=== PATIENT | female | born 2000 | race Caucasian/White ===

== ENCOUNTER 2020-05-31 07:11 | Emergency (ER) | payer OTHER, SELFPAY ==
[2020-05-31 07:31] VITALS: BP 118/80; PULSE 115; RESP 16; TEMP 39.4; O2SAT 98; BMI 24.5
--- NOTE | 2020-05-31 07:56 | ED_ITS ---
HPI - General Adult General Chief complaint: General Medical Stated complaint: sore throat Time Seen by Provider: 05/31/20 07:37 Source: patient Mode of arrival: ambulatory History of Present Illness HPI narrative: 20-year-old female with no significant past medical history complaining of sore throat, difficulty / painful swallowing, and fever x4 days. Admits pain radiates to right ear/ head. States she is unable to swallow. Admits to tonsillar infection last year with similar symptoms. took Tylenol/ Motrin without relief at home. denies cough, CP / SOB, recent travel, sick contacts Onset (ago): day(s) Severity: severe Pain Consistency: constant Exacerbating factors: eating Related Data Allergies Allergy/AdvReac Type Severity Reaction Status Date / Time No Known Allergies Allergy Verified 05/31/20 07:39 Review of Systems Review of Systems: Yes all other systems are reviewed and are negative Constitutional: Constitutional: Reports chills, Reports fever(s) and Reports headache(s) ENT: Reports as per HPI, Reports otalgia, Reports facial pain, Reports headache(s), Reports sore throat, Reports throat swelling and Denies tongue swelling Cardiovascular: Cardiovascular: Denies chest pain Respiratory: Respiratory: Denies cough Gastrointestinal: Gastrointestinal: Denies diarrhea and Denies vomiting Neurologic: Reports headache(s) Allergic/Immunologic: Allergic/Immunologic: Reports throat swelling and Denies tongue swelling PMFSH Past Medical History Attestation statement: The following information was validated with the patient. Medical History (Updated 05/31/20 @ 07:33 by Araceli Macias) No known health problems Social History Social History Alcohol intake: never Smoking Status: Never smoker Smoked in Last 30 Days: No Use of substances other than those prescribed or required for medical reasons: No Advance Directives: No Advance Directives Information Provided: Yes Physical Exam Vital Signs and I&O and Narrative: Vital Signs and I&O: Vital Signs Temp 99.1 F 05/31/20 11:19 Pulse 98 05/31/20 11:19 Resp 16 05/31/20 11:19 BP 110/59 L 05/31/20 11:19 Pulse Ox 98 05/31/20 11:19 Intake & Output 05/30/20 05/31/20 05/31/20 18:59 06:59 18:59 Intake Total 3050 / 3050 Balance 3050 / 3050 Weight 58.967 kg Intake: Intake, IV Amoun t 3050 / 3050 Clindamycin Ph osphate/D5W 600 50 / 50 mg In 50 ml @ 100 mls/hr IV ONCE ONE Rx#:[id number] 0.9 % Sodium C hloride 1,000 ml 3000 / 3000 @ 999 mls/hr I VCONT .Q1H1M RUY Rx#:[id number] Body Mass Index 24.5 Const: General: cooperative and healthy appearing O rientation/consciousness: patient oriented x3 HENMT: Head: Yes normal to inspection Ears: hearing grossly normal bilaterally and TM's normal bilaterally General nose exam: Normal external nose present Mouth: tongue normal, moist mucous membranes, no drooling and muffled voice (mild ) Throat: Yes uvula midline, Yes abnormal tonsil (R tonsil swollen, erythematous and with exudates) and No peritonsillar mass Neck: Other: cervical lymphadenopathy present greater on the right Resp: Effort & Inspection: normal respiratory effort, no respiratory distress, no stridor and not tachypneic Cardio: Jugular venous distension: no JVD Rhythm: regular rhythm GI: Inspection: Yes normal to inspection Palpation (GI): Soft to palpation and nontender Neuro: General: patient oriented x3 Course Reevaluation(s) Reevaluation #1: leukocytosis of 17.7. Patient's still febrile and ta chyacrdic, tolerated PO decadron and Tylenol in the ED. Low BP likely from dehydration/ decreased p.o. intake rather than severe sepsis. Low concern for severe sepsis. Will give additional IVF and re-evaluate, anticipated DC home Monospot screen negative Time: 09:20 Reevaluation #2: on re-evaluation she reports mild symptomatic improvement however residual throat pain. fever/vital signs improved, she is nontoxic appearing. Has tolerated p.o. in the ED. Discharged with worrisome signs and symptoms and very strict return precautions discussed. Patient verbalized understanding and feels safe to go home Time: 11:25 Medical Decision Making [facility] Narrative Medical decision making narrative: 20-year-old female with no significant past medical history complaining of sore throat, difficulty / painful swallowing, and fever x4 days. on exam a febrile, tachycardic likely from fever. exam consistent with strep pharyngitis/ possible tonsillar cellulitis . Low concern for [employer]. No drooling, uvula midline, no airway compromise. Low concern for severe sepsis at this time Plan: Labs, rapid strep, Monospot, IVF, p.o. Decadron, IV antibiotics Lab Data Result diagrams: 05/31/20 08:00 05/31/20 08:00 Labs: Lab Results 05/31/20 05/31/20 05/31/20 Range/Units 07:59 08:00 08:00 WBC 17.7 H (4.8-10.8) X10*3/uL RBC 4.47 (4.20-5.50) X10*6/uL Hgb 12.5 (12.0-16.0) g/dl Hct 38.4 (37-47) % MCV 85.9 (80-98) fL MCH 28.0 (27.0-33.0) pg MCHC 32.6 (31.0-35.0) g/dl RDW 12.9 (11.0-16.0) % Plt Count 225 (160-400) X10*3/uL MPV 9.8 (9.4-12.3) fL Immature Gran % (Auto) 1.0 H (0.0-0.4) % Neut % (Auto) 84.1 H (45-73) % Lymph % (Auto) 6.2 L (20-40) % [place] % (Auto) 8.6 (2-11) % Eos % (Auto) 0.0 (0-4) % Baso % (Auto) 0.1 (0-2) % Neut # (Auto) 14.9 H (2.0-8.3) X10*3/uL Lymph # (Auto) 1.1 L (1.2-4.9) X10*3/uL [place] # (Auto) 1.5 H (0.1-1.2) X10*3/uL Eos # (Auto) 0.0 (0.0-0.4) X10*3/uL Baso # (Auto) 0.0 (0.0-0.2) X10*3/uL Abs Immat Gran (auto) 0.18 H (0.00-0.03) X10*3/uL Absolute Nucleated RBC 0.000 (0.0-0.012) X10*3/uL Nucleated RBC % (auto) 0.0 (0.0-0.2) /100WBC Smear Tech's Comments VERIFIED Sodium (135-145) mmol/L Potassium (3.3-5.1) mmol/l Chloride (96-108) mmol/L Carbon Dioxide (22-29) mmol/L Anion Gap (12-20) BUN (9-16) mg/dL Creatinine (0.5-1.4) mg/dL Estim Creat Clear Calc Estimated GFR Random Glucose (60-115) mg/dL Lactic Acid 0.8 (0.5-2.0) mmol/L Calcium (8.4-10.2) mg/dL Total Bilirubin (0.0-1.0) mg/dL Direct Bilirubin (0.0-0.5) mg/dL AST (5-31) U/L ALT (0-31) U/L Alkaline Phosphatase (39-117) U/L Total Protein (6.5-8.0) g/dL Albumin (3.5-5.0) g/dL Monoscreen Negative (Negative) 05/31/20 Range/Units 08:00 WBC (4.8-10.8) X10*3/uL RBC (4.20-5.50) X10*6/uL Hgb (12.0-16.0) g/dl Hct (37-47) % MCV (80-98) fL MCH (27.0-33.0) pg MCHC (31.0-35.0) g/dl RDW (11.0-16.0) % Plt Count (160-400) X10*3/uL MPV (9.4-12.3) fL Immature Gran % (Auto) (0.0-0.4) % Neut % (Auto) (45-73) % Lymph % (Auto) (20-40) % [place] % (Auto) (2-11) % Eos % (Auto) (0-4) % Baso % (Auto) (0-2) % Neut # (Auto) (2.0-8.3) X10*3/uL Lymph # (Auto) (1.2-4.9) X10*3/uL [place] # (Auto) (0.1-1.2) X10*3/uL Eos # (Auto) (0.0-0.4) X10*3/uL Baso # (Auto) (0.0-0.2) X10*3/uL Abs Immat Gran (auto) (0.00-0.03) X10*3/uL Absolute Nucleated RBC (0.0-0.012) X10*3/uL Nucleated RBC % (auto) (0.0-0.2) /100WBC Smear Tech's Comments Sodium 137 (135-145) mmol/L Potassium 3.8 (3.3-5.1) mmol/l Chloride 103 (96-108) mmol/L Carbon Dioxide 26 (22-29) mmol/L Anion Gap 12 (12-20) BUN 8 L (9-16) mg/dL Creatinine 0.81 (0.5-1.4) mg/dL Estim Creat Clear Calc 91.4 Estimated GFR > 60 Random Glucose 112 (60-115) mg/dL Lactic Acid (0.5-2.0) mmol/L Calcium 8.9 (8.4-10.2) mg/dL Total Bilirubin 1.6 H (0.0-1.0) mg/dL Direct Bilirubin 0.7 H (0.0-0.5) mg/dL AST 18 (5-31) U/L ALT 8 (0-31) U/L Alkaline Phosphatase 77 (39-117) U/L Total Protein 7.7 (6.5-8.0) g/dL Albumin 4.5 (3.5-5.0) g/dL Monoscreen (Negative)
[2020-05-31] MEDS: Ketorolac Tromethamine 15 MG/ML VIAL IV (08:06)
[2020-05-31] MEDS: 0.9 % Sodium Chloride 1,000 ML 999 ML IVCONT ×3 (08:06→10:02)
[2020-05-31 08:27] LABS: Basophils Percent Auto 0.1 % (0-2); Hematocrit 38.4 % (37-47); Hemoglobin 12.5 g/dl (12.0-16.0); Imm Gran Abs Auto 0.18 X10*3/uL (0.00-0.03); Lymphocytes Absolute Auto 1.1 X10*3/uL (1.2-4.9); Lymphocytes Percent Auto 6.2 % (20-40); MANUAL DIFF FLAG SCAN; Mean Corpuscular HGB Conc 32.6 g/dl (31.0-35.0); Mean Corpuscular Volume 85.9 fL (80-98); Mean Platelet Volume 9.8 fL (9.4-12.3); Monocytes Absolute Auto 1.5 X10*3/uL (0.1-1.2); Monocytes Percent Auto 8.6 % (2-11); Neutrophils Absolute Auto 14.9 X10*3/uL (2.0-8.3); Neutrophils Percent Auto 84.1 % (45-73); Platelet Count 225 X10*3/uL (160-400); Red Blood Count 4.47 X10*6/uL (4.20-5.50); Red Cell Distribution Width 12.9 % (11.0-16.0); SCAN SMEAR FLAG 1; White Blood Count 17.7 X10*3/uL (4.8-10.8)
[2020-05-31] MEDS: Clindamycin Phosphate/D5W 600 MG/50 ML PIGGYBACK 100 MG IV (08:27)
[2020-05-31 08:29] LABS: Lactic Acid 0.8 mmol/L (0.5-2.0)
[2020-05-31 08:35] LABS: Alanine Aminotransferase 8 U/L (0-31); Albumin Level 4.5 g/dL (3.5-5.0); Alkaline Phosphatase 77 U/L (39-117); Anion Gap 12 (12-20); Aspartate Amino Transferase 18 U/L (5-31); Bilirubin Direct 0.7 mg/dL (0.0-0.5); Bilirubin Total 1.6 mg/dL (0.0-1.0); Blood Urea Nitrogen 8 mg/dL (9-16); Calcium 8.9 mg/dL (8.4-10.2); Carbon Dioxide 26 mmol/L (22-29); Chloride 103 mmol/L (96-108); Creatinine Clr Calc Pharmacy 91.4; Estimated Glomerular Filt Rate > 60; Glucose Random 112 mg/dL (60-115); Potassium 3.8 mmol/l (3.3-5.1); Sodium 137 mmol/L (135-145); Total Protein 7.7 g/dL (6.5-8.0)
[2020-05-31 08:51] LABS: SLIDE REVIEW VERIFIED
[2020-05-31 09:07] VITALS: BP 99/55; PULSE 110; TEMP 39.2; O2SAT 99
[2020-05-31 09:10] LABS: Monotest Negative (Negative)
--- NOTE | 2020-05-31 09:13 | PC.NURSE ---
PT TEMP DID NOT DECREASE WITH TORADOL/FLUIDS. PT STATED EARLIER SHE COULD NTO SWALLOW MOTRIN. OFFERED TYLENOL AT THIS TIME AND WILL CRUSH FOR PATIENT, SHE STATED THAT WOULD BE OK FOR HER TO TAKE THAT WAY. WILL ADMINISTER.
[2020-05-31] MEDS: Acetaminophen 325 MG TABLET 650 MG PO (09:18)
[2020-05-31] MEDS: dexAMETHasone 2 MG TABLET 10 MG PO (09:18)
[2020-05-31 10:03] VITALS: BP 110/63; PULSE 104; RESP 16; TEMP 38.6; O2SAT 99
[2020-05-31 10:53] VITALS: BP 109/64; PULSE 97; RESP 16; TEMP 37.9; O2SAT 98
[2020-05-31 11:19] VITALS: BP 110/59; PULSE 98; RESP 16; TEMP 37.3; O2SAT 98
== END 2020-05-31 12:12 | disposition home or self-care (01) ==
PROVIDERS: Physician Assistant; Emergency Provider Emergency Medicine
DX: J02.9 Acute pharyngitis, unspecified (principal); R50.9 Fever, unspecified; Z20.828 Contact with and (suspected) exposure to other viral communicable diseases
CPT/HCPCS: 36415; 80048; 80076; 83605; 85025; 86308; 87040; 87071; 96361; 96365; 96375; 99284; J1885

== ENCOUNTER 2022-08-24 12:08 | Emergency (ER) | payer OTHER, SELFPAY ==
--- NOTE | 2022-08-24 12:15 | ED_ITS ---
HPI - URI/Sore Throat General Chief Complaint: Upper Respiratory Symptoms <Patricia Cai CNP - Last Filed: 08/24/22 12:24> Stated Complaint: Flu Symptoms <Patricia Cai CNP - Last Filed: 08/24/22 12:24> Time Seen by Provider: 08/24/22 15:51 <Patricia Cai CNP - Last Filed: 08/24/22 12:24> Source: patient <Sally Carr NP - Last Filed: 08/24/22 16:31> Mode of arrival: ambulatory <Sally Carr NP - Last Filed: 08/24/22 16:31> Limitations: no limitations <Sally Carr NP - Last Filed: 08/24/22 16:31> History of Present Illness HPI Narrative: 22-year-old female no significant past medical history presents the emergency department with 4 day history of fever, cough, rhinorrhea, and muffled hearing in her ears. She had a telehealth visit with her primary care provider 3 days ago who recommended ibuprofen and decongestant for management of her symptoms. Her last fever was 2 days ago and managed with ibuprofen with good effect. She denies any history of asthma or breathing related issues. She denies any shortness of breath, chest pain, nausea, vomiting, changes in bowel patterns, headache, or vision changes. <Sally Carr NP - Last Filed: 08/24/22 16:31> MD elicited complaint: cough, rhinorrhea and nasal congestion <Sally Carr NP - Last Filed: 08/24/22 16:31> Onset (ago): day(s) (4) <Sally Carr NP - Last Filed: 08/24/22 16:31> Able to tolerate fluids by mouth: Yes <Sally Carr NP - Last Filed: 08/24/22 16:31> Exacerbating factors: nothing <Sally Carr NP - Last Filed: 08/24/22 16:31> Relieving factors: OTC cold medicine (moderate effect) <Sally Carr NP - Last Filed: 08/24/22 16:31> Treatments prior to arrival: none <Sally Carr NP - Last Filed: 08/24/22 16:31> Related Data Home Medications: Previous Rx's Medication Instructions Recorded acetaminophen 500 mg tablet 500 mg PO Q6H PRN fever or pain 05/31/20 (Tylenol Extra Strength) #20 tabs clindamycin HCl 300 mg capsule 300 mg PO Q6H 7 days #28 caps 05/31/20 ibuprofen 400 mg tablet 400 mg PO Q6H 7 days #28 tabs 05/31/20 <Patricia Cai CNP - Last Filed: 08/24/22 12:24> Allergies/Adverse Reactions: Allergies Allergy/AdvReac Type Severity Reaction Status Date / Time No Known Allergies Allergy Verified 05/31/20 07:39 <Patricia Cai CNP - Last Filed: 08/24/22 12:24> Review of Systems Review of Systems: In addition to documented HPI above, the additional ROS was obtained: Constitutional: No Weight loss, No Chills ENT/Mouth:No Sinus Pain, No Hoarseness, No sore throat, No Swallowing Difficulty Cardiovascular: No Chest Pain, No SOB Respiratory: No Sputum, No Wheezing Gastrointestinal: No Nausea, No Vomiting, No Diarrhea, No Constipation, No Abdominal pain Genitourinary: No Dysuria, No Urinary Frequency, No Hematuria, No Urinary Incontinence/retention, No Urgency, No Flank Pain Musculoskeletal: No joint pain, No Myalgias, No Joint Swelling Skin: No Skin Lesions, No rash Neuro: No Weakness, No Numbness, No Paresthesias <Sally Carr NP - Last Filed: 08/24/22 16:31> Yes all other systems are reviewed and are negative <Sally Carr NP - Last Filed: 08/24/22 16:31> [facility] Past Medical History Attestation statement: The following information was validated with the patient. <Sally Carr NP - Last Filed: 08/24/22 16:31> Source: old records reviewed <Sally Carr NP - Last Filed: 08/24/22 16:31> Medical History: Medical History No known health problems <Patricia Riyacampbell Cai CNP - Last Filed: 08/24/22 12:24> Social History Social History: Social History Alcohol intake: never Advance Directives: No Advance Directives Information Provided: No <Patricia Ritter KARLIE Cai - Last Filed: 08/24/22 12:24> Physical Exam Vital Signs: Vital Signs: Last Vital Signs Temp 98 F 08/24/22 12:20 Pulse 100 08/24/22 12:20 Resp 16 08/24/22 12:20 BP 138/78 08/24/22 12:20 Pulse Ox 99 08/24/22 12:20 O2 Del Method 08/24/22 12:20 BMI result Body Mass Index 30.2 <Patricia KhalilKARLIE rivera - Last Filed: 08/24/22 12:24> Vital Signs: Last Vital Signs Temp 98 F 08/24/22 12:20 Pulse 100 08/24/22 12:20 Resp 16 08/24/22 12:20 BP 138/78 08/24/22 12:20 Pulse Ox 99 08/24/22 12:20 O2 Del Method 08/24/22 12:20 BMI result Body Mass Index 30.2 <Sally Carr NP - Last Filed: 08/24/22 16:31> Const: General: cooperative, alert and awake <Sally Carr NP - Last Filed: 08/24/22 16:31> Nutritional Appearance: average body habitus <Sally Carr NP - Last Filed: 08/24/22 16:31> Orientation/consciousness: patient oriented x3 <Sally Carr NP - Last Filed: 08/24/22 16:31> Limitations: no limitations <Sally Carr NP - Last Filed: 08/24/22 16:31> HEENT: Head: Yes normal to inspection and Yes atraumatic <Sally Carr NP - Last Filed: 08/24/22 16:31> Ears: hearing grossly normal bilaterally, external ears normal and TM abnormal with fluid behind the TM bilateral <Sally Carr NP - Last Filed: 08/24/22 16:31> General nose exam: Normal external nose present and Normal nares present <Sally Carr RESIDENCE HALL DIRECTOR - Last Filed: 08/24/22 16:31> Face and sinus: Yes normal facial exam and Yes face symmetric <Sally Carr [employer]IDENCE HALL DIRECTOR - Last Filed: 08/24/22 16:31> Mouth: Normal oral and palatal mucosa present, tongue normal and no muffled voice <Sally Carr [employer]ID[employer] H[employer] DIRECTOR - Last Filed: 08/24/22 16:31> Teeth and gingiva: dentition normal <Sally Carr [employer]IDENCE HALL DIRECTOR - Last Filed: 08/24/22 16:31> Throat: Yes posterior oropharynx normal, Yes tonsils normal and Yes uvula midline <Sally Carr [employer]IDENCE HALL DIRECTOR - Last Filed: 08/24/22 16:31> Eyes: General: appearance normal, both eyes and all related structures <Sally Carr [employer]IDENCE HALL DIRECTOR - Last Filed: 08/24/22 16:31> Visual Bartlett: normal visual bartlett by confrontation <Sally Carr [employer]IDENCE HALL DIRECTOR - Last Filed: 08/24/22 16:31> Alignment and Position: alignment normal <Sally Carr [employer]IDENCE HALL DIRECTOR - Last Filed: 08/24/22 16:31> Periorbital: periorbital findings normal <Sally Carr [employer]IDENCE HALL DIRECTOR - Last Filed: 08/24/22 16:31> Eyelids: Yes eyelids normal <Sally Carr RESIDENCE HALL DIRECTOR - Last Filed: 08/24/22 16:31> Conjunctivae: conjunctivae normal <Sally Carr RESIDENCE HALL DIRECTOR - Last Filed: 08/24/22 16:31> Sclerae: sclerae normal <Sally Carr RESIDENCE HALL DIRECTOR - Last Filed: 08/24/22 16:31> Corneas: corneas normal <Sally Carr, RESIDENCE HALL DIRECTOR - Last Filed: 08/24/22 16:31> Pupils: Equal, round and reactive pupils present <Sally Carr [employer]IDENCE HALL DIRECTOR - Last Filed: 08/24/22 16:31> EOM: EOMs intact bilaterally <Sally Carr [employer]IDENCE HALL DIRECTOR - Last Filed: 08/24/22 16:31> Neck: Neck: Yes normal visual inspection, Yes full ROM and Yes no lymphadenopathy <Sally Carr, RESIDENCE HALL DIRECTOR - Last Filed: 08/24/22 16:31> Chest: Chest palpation & inspection: normal inspection of the chest <Sally Carr, RESIDENCE HALL DIRECTOR - Last Filed: 08/24/22 16:31> Resp: Effort & Inspection: normal respiratory effort, Actively coughing Quality: dry and not labored <Sally Carr, RESIDENCE HALL DIRECTOR - Last Filed: 08/24/22 16:31> Auscultation: clear to auscultation bilaterally, no crackles, no rhonchi and no wheezes <Sally Bruno, RES[employer]ENCE H[employer] DIRECTOR - Last Filed: 08/24/22 16:31> Cardio: Rate: regular rate <Sally Carr, RESIDENCE HALL DIRECTOR - Last Filed: 08/24/22 16:31> Rhythm: regular rhythm <Sally Carr, RESIDENCE HALL DIRECTOR - Last Filed: 08/24/22 16:31> Skin: General skin exam: no rashes or lesions noted <Sally Carr, RESIDENCE HALL DIRECTOR - Last Filed: 08/24/22 16:31> Neuro: General: patient oriented x3, tone normal and moves all extremities <Sally Carr, RESIDENCE HALL DIRECTOR - Last Filed: 08/24/22 16:31> Cranial nerves: Yes Equal, round and reactive pupils present <Sally Carr, RESIDENCE HALL DIRECTOR - Last Filed: 08/24/22 16:31> Cognition (Neuro): normal cognition <Sally Carr, RESIDENCE HALL DIRECTOR - Last Filed: 08/24/22 16:31> Gait exam (Neuro): Normal gait present <Sally Angelicakrishgabino, RESIDENCE HALL DIRECTOR - Last Filed: 08/24/22 16:31> Motor exam (neuro): 5/5 motor strength present throughout <Sallyzak Carr, RESIDENCE HALL DIRECTOR - Last Filed: 08/24/22 16:31> Extrem: General: Yes normal to inspection, Yes full ROM and Yes capillary refill normal <Sally Bruno, RES[employer]ENCE H[employer] DIRECTOR - Last Filed: 08/24/22 16:31> Course Course Course Narrative: This is an RME: Additional HPI, ROS, PE not included below will be deferred to primary provider. Patient is a 22-year-old female who presents to the emergency department with complaints of cough, runny nose, bilateral ear pain x 4 days. Denies known sick contacts. Has been taking ibuprofen and a decongestant prescribed by PCP after phone visit 3 days ago without any improvement. Denies fevers, chills. Will require a return to work note. Plan: viral testing. <Patricia Cai CNP - Last Filed: 08/24/22 12:24> This is an RME: Additional HPI, ROS, PE not included below will be deferred to primary provider. Patient is a 22-year-old female who presents to the emergency department with complaints of cough, runny nose, bilateral ear pain x 4 days. Denies known sick contacts. Has been taking ibuprofen and a decongestant prescribed by PCP after phone visit 3 days ago without any improvement. Denies fevers, chills. Will require a return to work note. Plan: viral testing. <Sally Carr NP - Last Filed: 08/24/22 16:31> Medical Decision Making Medical Decision Making MDM Narrative: 22-year-old female no significant past medical history presents the emergency department with 4 day history of fever, cough, rhinorrhea, and muffled hearing in her ears. Serology negative for influenza or covid. Physical exam consistent with fluid behind bilateral TMs without reddness or bulging. LS CTA. Pt alert, awake, and converstant with no acute distress noted and safe for discharge. Plan to continue Ibuprofen and decongestants to manage symptoms. Recommended to increase PO intake and rest. HPI, PE, diagnostics, and plan discussed with patient and family with no unanswered questions at this time. Patient educated to return to the emergency department with new, worsening, or concerning emergent symptoms. Recommended to follow-up with her primary care provider in addition to [facility] general surgery for further treatment and manag ement. *Refer to Course for additional information on consultations, diagnostic interpretation, consultations, emergency department stay, conversations with patient and family, shared decision making with patient, and more information on medical decision making* <Sally Carr NP - Last Filed: 08/24/22 16:31> Lab Data Labs: Lab Results 08/24/22 08/24/22 Range/Units 12:25 12:25 COVID-19 ([facility]) Negative (Negative) COVID-19 Clin Com See Note Influenza Type A ([place]) Negative (Negative) Influenza Type B ([place]) Negative (Negative) Influenza A & B Note See Note <Patricia Cai CNP - Last Filed: 08/24/22 12:24> Lab Results 08/24/22 08/24/22 Range/Units 12:25 12:25 COVID-19 ([facility]) Negative (Negative) COVID-19 Clin Com See Note Influenza Type A ([place]) Negative (Negative) Influenza Type B ([place]) Negative (Negative) Influenza A & B Note See Note <Sally Carr NP - Last Filed: 08/24/22 16:31> Discharge Plan Discharge Clinical Impression: Upper respiratory infection <Patricia Cai CNP - Last Filed: 08/24/22 12:24> Patient Disposition: Home, Self-Care <Patriica Cai CNP - Last Filed: 08/24/22 12:24> Instructions: Upper Respiratory Infection (ED) <Patricia Cai CNP - Last Filed: 08/24/22 12:24> Prescriptions: No Action clindamycin HCl 300 mg capsule 300 mg PO Q6H 7 Days Qty: 28 0RF ibuprofen 400 mg tablet 400 mg PO Q6H 7 Days Qty: 28 0RF acetaminophen [Tylenol Extra Strength] 500 mg tablet 500 mg PO Q6H PRN (Reason: fever or pain) Qty: 20 0RF <Patricia Cai CNP - Last Filed: 08/24/22 12:24> Referrals: Santi Kirkpatrick MD [Primary Care Provider] - <Patricia Cai CNP - Last Filed: 08/24/22 12:24> Stand Alone Forms: Work/School Release <Patricia Cai CNP - Last Filed: 08/24/22 12:24> Print Language: Citizen Of [place] <Patricia Cai CNP - Last Filed: 08/24/22 12:24>
[2022-08-24 12:20] VITALS: BP 138/78; PULSE 100; RESP 16; TEMP 36.6; O2SAT 99; BMI 30.2
[2022-08-24 12:51] LABS: COVID-19 Test Negative (Negative); IDNOW Serial# 16C4AD1C
[2022-08-24 13:01] LABS: IDNOW Serial# 9DB6401D; Influenza A Negative (Negative); Influenza B2 Negative (Negative)
== END 2022-08-24 16:54 | disposition home or self-care (01) ==
PROVIDERS: Nurse Practitioner Family; Emergency Provider Student in an Organized Health Care Education/Training Program; PCP Internal Medicine
DX: J06.9 Acute upper respiratory infection, unspecified (principal); R50.9 Fever, unspecified; R05.9 Cough, unspecified; Z20.822 Contact with and (suspected) exposure to COVID-19
CPT/HCPCS: 87502; 87635; 99282; 99283

== ENCOUNTER 2023-02-08 16:02 | Emergency (ER) | payer MEDICAID, SELFPAY ==
--- NOTE | ~2023-02-08 | XR_ITS ---
EXAMINATION: XR ANKLE, LEFT CLINICAL INFORMATION: Left ankle injury COMPARISON: None available. TECHNIQUE: AP, lateral, and mortise views of the left ankle. FINDINGS: The bones and soft tissues are normal. No fracture. Alignment is anatomic. Joint spaces are maintained. No joint effusion. XR/XR ankle LT min 3V IMPRESSION: Normal left ankle.
[2023-02-08 16:14] VITALS: BP 130/80; PULSE 71; RESP 18; TEMP 36.9; O2SAT 99; BMI 31.9
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
== END 2023-02-08 17:01 | disposition home or self-care (01) ==
PROVIDERS: Emergency Provider Student in an Organized Health Care Education/Training Program; PCP Internal Medicine
DX: S93.402A Sprain of unspecified ligament of left ankle, initial encounter (principal); M25.572 Pain in left ankle and joints of left foot; X58.XXXA Exposure to other specified factors, initial encounter; Y93.9 Activity, unspecified; Y92.9 Unspecified place or not applicable; Y99.9 Unspecified external cause status; Z79.899 Other long term (current) drug therapy
CPT/HCPCS: 73610; 99283

== ENCOUNTER 2023-08-30 13:42 | Emergency (ER) | payer OTHER, SELFPAY ==
[2023-08-30 14:18] VITALS: BP 115/76; PULSE 75; RESP 18; TEMP 36.1; O2SAT 97; BMI 24.7
[2023-08-30 16:22] VITALS: BP 120/48; PULSE 74; RESP 14; TEMP 36.7; O2SAT 99
--- NOTE | 2023-08-30 17:31 | ED.URI ---
HPI - URI/Sore Throat General Chief Complaint: Upper Respiratory Symptoms Stated Complaint: fever Time Seen by Provider: 08/30/23 16:41 Source: patient Mode of arrival: ambulatory Limitations: no limitations History of Present Illness HPI Narrative: patient is a 23-year-old male presents emergency department for evaluation of sore throat, congestion, fever responsive to acetaminophen cough, body aches and intermittent headache. Symptom onset was 5 days ago. She reports taking at home COVID- 19 test today which she states resulted as positive. Her sister is also ill with similar symptoms. She is requesting a work note. Related Data Previous Rx's Medication Instructions Recorded acetaminophen 500 mg tablet 500 mg PO Q6H PRN fever or pain 05/31/20 (Tylenol Extra Strength) #20 tabs clindamycin HCl 300 mg capsule 300 mg PO Q6H 7 days #28 caps 05/31/20 ibuprofen 400 mg tablet 400 mg PO Q6H 7 days #28 tabs 05/31/20 Allergies Allergy/AdvReac Type Severity Reaction Status Date / Time No Known Allergies Allergy Verified 08/30/23 14:18 Review of Systems Review of Systems: Yes all other systems are reviewed and are negative [facility] Past Medical History Attestation statement: The following information was validated with the patient. Source: old records reviewed Onset Date is defined in the Problem List Problems that require an onset date and time if occurred within 24 hrs of arrival to the ED Aortic Dissection and Rupture; Neurologic impairment; Cardiopulmonary Arrest; Endotracheal Intubation; Insertion or Replacement of Mechanical Circulatory Assist Device Medical History No known health problems Social History Social History Alcohol intake: never Advance Directives: No Advance Directives Information Provided: No Physical Exam Vital Signs: Vital Signs: Last Vital Signs Temp 98.1 F 08/30/23 16:22 Pulse 74 08/30/23 16:22 Resp 14 08/30/23 16:22 BP 120/48 L 08/30/23 16:22 Pulse Ox 99 08/30/23 16:22 O2 Del Method Room Air 08/30/23 16:22 BMI result Body Mass Index 24.7 Appearance: Alert.?Oriented to person, place and time. No acute distress.?Normal affect. Eyes: Pupils equal, round and reactive to light.? ENT: TM normal bilaterally. Pharynx Mildly erythematous without exudates or tonsillar hypertrophy. Uvula midline. No trismus. No drooling. Neck: Normal inspection.? Neck supple.??No cervical adenopathy CVS: Heart sounds normal. Normal heart rate and rhythm.? Pulses normal.?? Respiratory: No respiratory distress.? Lung sounds clear to auscultation bilaterally?? Abdomen: Soft and non-tender. Normoactive bowel sounds. Skin: Skin warm and dry.? Normal skin color.? ? Extremities: No lower extremity edema.? Neuro: Moves all extremities spontaneously. Sensation intact bilaterally. No motor deficits. Ambulates with normal steady gait. Medical Decision Making Medical Decision Making MDM Narrative: Patient is a 23-year-old female, presenting for evaluation of upper respiratory symptoms. reported at home COVID- 19 testing to be positive. Testing today reveals negative COVID- 19/influenza / RSV PCR. Reviewed these findings with patient. Strep a testing is negative, no evidence of peritonsillar retropharyngeal abscess. At this time history and physical exam not consistent with ACS/PE/pneumonia. Well-appearing, nontoxic, afebrile, no tachycardia or tachypnea/hypoxia. Speaking clear full sentences, ambulatory with steady gait. Symptoms at this time most consistent with a viral upper respiratory infection. Discussed conservative treatment including rest, hydration, Tylenol/ibuprofen as needed for fever and body aches, saline nasal spray, humidifier, [id number]-[id number] cold medication. Advised to follow-up with primary care provider as needed, discussed reasons to return back to the emergency department. All questions were answered. Patient discharged home in stable condition. Provided with a return to work/school note. Differential Diagnosis Differential Diagnoses: The differential diagnosis associated with the presentation includes ( See narrative above) Admission/Observation Consideration of admission/observation: Escalation of care including admission/observation considered ( see narrative above) Lab Data MDM Lab Attestation statement: I reviewed the patient's lab results. ( see narrative above) Labs: Lab Results 08/30/23 08/30/23 Range/Units 13:55 16:27 COVID-19 ([facility]) Negative (Negative) COVID-19 Clin Com See Note Influenza Type A ([place]) Negative (Negative) Influenza Type A (PCR) NEGATIVE (Negative) Influenza Type B ([place]) Negative (Negative) Influenza Type B (PCR) NEGATIVE (Negative) Influenza A & B Note See Note RSV RNA Qual (PCR) NEGATIVE (Negative) SARS-CoV-2 RNA (RT-PCR) NEGATIVE (Negative) S. pyogenes GrpA [place] Negative (Negative) Prescription Management I considered prescription management with: Pain Medication ( acetaminophen/ibuprofen) Discharge Plan Discharge Clinical Impression: Upper respiratory infection Patient Disposition: Home, Self-Care Instructions: Upper Respiratory Infection (ED) Additional Instructions: Be sure to rest, stay well hydrated drinking plenty of fluids, eat small frequent meals. Tylenol/ibuprofen can be used as needed for fever/pain. [id number] cold medications may be helpful as well for symptoms. Saline nasal spray, humidifier may be helpful for nasal congestion. You may return to the emergency department with any new or worsening symptoms or concerns. Follow-up with your primary care provider as needed. Should remain out of school/ work until symptoms have resolved and have been without a fever for 24 hours without the use of Tylenol or ibuprofen. Prescriptions: No Action clindamycin HCl 300 mg capsule 300 mg PO Q6H 7 Days Qty: 28 0RF ibuprofen 400 mg tablet 400 mg PO Q6H 7 Days Qty: 28 0RF acetaminophen [Tylenol Extra Strength] 500 mg tablet 500 mg PO Q6H PRN (Reason: fever or pain) Qty: 20 0RF Referrals: Physician,Unknown J [Primary Care Provider] - Stand Alone Forms: Work/School Release
== END 2023-08-30 18:46 | disposition home or self-care (01) ==
PROVIDERS: Emergency Provider Emergency Medicine
DX: J06.9 Acute upper respiratory infection, unspecified (principal); R50.9 Fever, unspecified; M79.10 Myalgia, unspecified site; R51.9 Headache, unspecified; Z20.822 Contact with and (suspected) exposure to COVID-19; Z20.828 Contact with and (suspected) exposure to other viral communicable diseases; Z79.899 Other long term (current) drug therapy
CPT/HCPCS: 0241U; 87502; 87635; 87651; 99283